=== PATIENT | male | born 1975 | race Caucasian/White ===

== ENCOUNTER → 2017-03-04 | Outpatient (CLI) | payer BC | END | disposition home or self-care (01) | LOC: LABWHC1 16:40 | PROVIDERS: ATTEND Internal Medicine Cardiovascular Disease | DX: I48.1 Persistent atrial fibrillation (principal) | CPT/HCPCS: 36415; 84443 ==

== ENCOUNTER → 2017-03-04 | Outpatient (CLI) | payer BC ==
--- NOTE | 2017-03-04 14:03 | PCN ---
DATE OF SERVICE: 03/04/2017 STRESS TEST ([facility]) INDICATION: Chest pain. BASELINE HEART RATE: 107 BASELINE BLOOD PRESSURE: 112/94 MAXIMUM HEART RATE: 179 MAXIMUM BLOOD PRESSURE: 194/82 85% MPHR: 152 100% MPHR: 179 METS: 3.0 MAXIMUM STAGE REACHED: 1 TOTAL EXERCISE TIME: 2:17 Baseline EKG shows atrial fibrillation with totally controlled ventricular rate and nonspecific ST-T wave changes. Patient exercised on [facility] protocol for a total of 2 minutes, achieving 3 METS, 100% of predicted maximum heart rate and complained of shortness of breath and had PVC's due to which the stress test was stopped. CONCLUSION: 1. Poor exercise tolerance. 2. Atrial fibrillation with poorly-controlled ventricular rate. MTDD
== END | disposition home or self-care (01) ==
LOC: RADNMMAIN 09:58
PROVIDERS: ATTEND Internal Medicine
DX: I48.91 Unspecified atrial fibrillation (principal)
CPT/HCPCS: 93017

== ENCOUNTER 2017-03-16 07:34 | Day surgery (SDC) | payer BC ==
[2017-03-12 11:45] VITALS: BMI 37.5
[~2017-03-16 07:34] MED LIST: ALPRAZolam 0.25 MG TAB PO PRN; ALPRAZolam 0.5 MG TAB PO PRN; ASPIRIN 325 MG TAB PO STA; ATORVASTATIN 80 MG TAB PO STA; NITROGLYCERIN SL TABS 0.4 MG TAB SUBLINGUAL PRN; SODIUM CHLORIDE 0.9% 1,000 ML in EMPTY BAG 1 BAG IV ONE
[2017-03-16 07:57] VITALS: RESP 20; TEMP 98.4
[2017-03-16] MEDS ORDERED: MIDAZOLAM 2 MG/2 ML VIAL ONE (08:34)
[2017-03-16] MEDS ORDERED: diphenhydrAMINE 50 MG/ML 1 ML VIAL ONE (08:34)
[2017-03-16] MEDS ORDERED: LIDOCAINE 2% INJ 20 MG/ML (20 ML MDV) ONE (08:34)
[2017-03-16 08:50] LABS: Anion Gap 12 mmol/L; Blood Urea Nitrogen 17 mg/dL (9-20); Calcium 9.2 mg/dL (8.4-10.2); Carbon Dioxide 22 mmol/L (22-30); Chloride 106 mmol/L (98-107); Glucose 90 mg/dL (74-99); Non-African American GFR(MDRD) >60 (>60 ml/min/1.73 sqM); Potassium 4.6 mmol/L (3.5-5.1); Sodium 140 mmol/L (137-145)
[2017-03-16] MEDS ORDERED: IV FLUID CONTINUATION 900 ML IV ONE (08:52)
[2017-03-16] MEDS ORDERED: MIDAZOLAM 2 MG/2 ML VIAL IVP ONE (08:52)
[2017-03-16] MEDS ORDERED: diphenhydrAMINE 50 MG/ML 1 ML VIAL IVP ONE (08:52)
[2017-03-16] MEDS ORDERED: LIDOCAINE 2% INJ 20 MG/ML SQ ONE (08:56)
[2017-03-16] MEDS ORDERED: fentaNYL (PF) 50 MCG/ML 2 ML AMP ONE (08:58)
[2017-03-16] MEDS ORDERED: fentaNYL (PF) 50 MCG/ML 2 ML AMP IV ONE (09:00)
[2017-03-16] MEDS ORDERED: IOHEXOL 350 MG/ML 125ML BOTTLE INJ ONE (09:11)
[2017-03-16] MEDS ORDERED: RX INFO: IV CONTRAST WAS GIVEN 1 EACH MISC MISCELLANE PRN (09:21)
[2017-03-16] MEDS ORDERED: SODIUM CHLORIDE 0.9% 1,000 ML IV SCH (09:30)
[2017-03-16] MEDS ORDERED: LISINOPRIL 2.5 MG TAB PO SCH (10:00)
--- NOTE | 2017-03-16 10:01 | PCN ---
CARDIAC CATHETERIZATION NOTE INDICATION: New onset dilated cardiomyopathy. PROCEDURE NOTE: After obtaining informed consent left heart catheterization, coronary angiogram and LV gram were performed via the right femoral artery using standard Dianne catheters. Patient tolerated the procedure well without any obvious immediate complications. FINDINGS: 1. Hemodynamics: Left ventricular end-diastolic pressure is 12 mm. There is no significant gradient across the aortic valve. 2. Left Ventriculogram: Left ventriculogram is performed in MELGAR position and shows enlarged left ventricle with moderate LV systolic dysfunction with ejection fraction of 35 to 40% with diffuse global hypokinesis. 3. Angiographic Data: Left main coronary artery: The left main coronary artery is normal in size and free of stenosis. It divides into left anterior descending coronary artery, ramus intermedius and circumflex coronary artery. LAD and its branches, circumflex coronary artery and ramus intermedius are free of significant stenosis. Right coronary artery is a large dominant vessel and is free of significant stenosis. CONCLUSIONS: 1. Normal coronary arteries. 2. Dilated cardiomyopathy with moderate left ventricular dysfunction with diffuse global hypokinesis. PLAN: The exact etiology of his cardiomyopathy in this young gentleman is unclear, but could be related to the atrial fibrillation with uncontrolled ventricular rate. The plan at this stage is to continue with the beta ferdinand Tenormin 25 mg daily and lisinopril 2.5 mg daily. Continue the Xarelto that he is currently on and start him on amiodarone 200 mg b.i.d. and attempt cardioversion on him three weeks from now. My hope is that his cardiomyopathy is related to the A. fib with RVR and once he is cardioverted the LV function will improve. We will reassess his LV function three months after the cardioversion. CHIVO
--- NOTE | 2017-03-16 10:08 | MISC ---
March 16, [address] Villa: I performed cardiac catheterization on Tung Montoya. This is a 41-year-old gentleman who I initially met during stress test at [facility] when he was found to be in atrial fibrillation with poorly controlled ventricular rate. I started him on anticoagulant and rate control measures. Both an echocardiogram and stress test confirmed LV systolic dysfunction. I performed cardiac catheterization on him to rule out ischemic heart disease and the cardiac catheterization did not reveal any obstructive CAD. The plan at this stage is to adequately anticoagulate him, start him on amiodarone and attempt cardioversion three weeks from now. I am hoping that his cardiomyopathy is related to atrial fibrillation with poorly controlled ventricular rate and once he is in sinus rhythm his LV function would improve. Thank you for giving me the privilege of participating in this pleasant gentleman. Sincerely, CHIVO
[2017-03-16 17:02] VITALS: BP 102/62; PULSE 100
[2017-03-16] MEDS ORDERED: AMIODARONE 200 MG TAB PO SCH (21:00)
--- NOTE | 2017-03-18 11:56 | CDI ---
Dr. Clark Per the anesthesia report/plan, local and IV sedation are check marked. Fentanyl and Versed are noted to be administered. Per new CMS ([employer] for Medicare and Medicaid Services) guidelines there is a change by which the work of moderate/conscious sedation will be reimbursed separately. Further clarification of the documentation of IV sedation is needed for proper reporting purposes. Please clarify the type of sedation this patient received during the cardiac catheterization. Moderate/conscious sedation MAC (unconscious sedation) General Anesthesia Other (please specify) PLEASE DOCUMENT YOUR FINDINGS IN AN ADDENDUM TO THE PROCEDURE NOTE. If you have any questions about this query, you may contact Network Operations Lead, Opal Mcneil at . Thank you for your time. HERMELINDO Tijerina
--- NOTE | 2017-03-31 07:57 | PN ---
This is a 41-year-old gentleman who underwent cardiac catheterization by me and the total sedation time was 15 minutes. CHIVO
== END 2017-03-16 14:40 | disposition home or self-care (01) ==
LOC: CATHCVL 07:34
PROVIDERS: ATTEND Internal Medicine Cardiovascular Disease
DX: I42.0 Dilated cardiomyopathy (principal); I48.1 Persistent atrial fibrillation; I10 Essential (primary) hypertension; Z79.82 Long term (current) use of aspirin; Z79.899 Other long term (current) drug therapy; Z79.01 Long term (current) use of anticoagulants
CPT/HCPCS: 93458; 80048; C1760; C1894; C1769; J2001; J2250; J1200; J3010; Q9967

== ENCOUNTER → 2018-05-18 | Outpatient (CLI) | payer BC ==
--- NOTE | 2018-05-18 10:37 | US ---
EXAMINATION TYPE: US thyroid st tissue head/neck DATE OF EXAM: 05/18/2018 COMPARISON: NONE CLINICAL HISTORY: R94.6 ABN THYROID LABS. GLAND SIZE: Right Lobe: 4.4 x 1.3 x 1.7 cm Overall Parenchyma: heterogenous Left Lobe: 4.3 x 1.7 x 1.2 cm Overall Parenchyma: heterogeneous Isthmus Thickness: 0.5 cm NODULES RIGHT: # of nodules measured on right: 0 LEFT: # of nodules measured on left: 0 ISTHMUS: # of nodules measured in the isthmus: 0 Bilateral neck scanned, no evidence of lymphadenopathy. IMPRESSION: Heterogeneous pattern to the thyroid tissue without discrete nodule correlate for thyroiditis.
== END | disposition home or self-care (01) ==
LOC: RADUSWWP 08:31
PROVIDERS: ATTEND Internal Medicine
DX: R93.8 Abnormal findings on diagnostic imaging of other specified body structures (principal)
CPT/HCPCS: 76536

== ENCOUNTER → 2019-05-31 | Outpatient (CLI) | payer BC ==
[2019-05-31 14:07] VITALS: BP 120/74; PULSE 75; TEMP 98.4; BMI 39.5
--- NOTE | 2019-05-31 17:26 | P.HPBAR ---
Bariatric H&P - History & Physicial H&P Date: 05/31/19 History & Physicial: Visit/CC: band adjustment Patient initial contact: Initial weight: 158.757 kg Initial weight in pounds: 350.00 Height: 6 ft 3 in Initial BMI: 43.7 Last weight: Current weight: 143.426 kg Current weight in pounds: 316.20 Current BMI: 39.5 Buckner body weight (based on NIH guidelines): 88.904 kg Excess body weight loss: 21.9% The patient is a 43 year-old M who presents for Bariatric Assessment. Patient known to the bariatric center. Under underwent previous lap band by Dr. Lopez. His heaviest weight was 355. His lowest weight he believes was 300. Currently sitting at 316. Patient was too tight in the past and said his band was emptied. Still however having episodes of regurgitation one time per week. Daily he has food getting caught requires the patient to stand up and walk around for the food passed. No recent workup. Denies heartburn. No night cough. He is not sure if he wants to keep the band or if he wants to move to a different bariatric procedure at this point. Review of Systems The patient denies any acute changes in vision or hearing, no dysphagia or odynophagia, no chest pain or shortness of breath, no dysuria or hematuria, no headache, no runny nose, no rectal bleeding or melena, no unexplained weight loss Past Medical History Past Medical History: Atrial Fibrillation, Hypertension Additional Past Medical History / Comment(s): A-FIb resolved with cardiac "start and stop" 2015 History of Any Multi-Drug Resistant Organisms: None Reported Past Surgical History: Tonsillectomy Additional Past Surgical History / Comment(s): Lap Band 2012, Cardiac "start and stop" to correct A-Fib (2015) Past Anesthesia/Blood Transfusion Reactions: No Reported Reaction Additional Past Anesthesia/Blood Transfusion Reaction / Comm: NO blood transfusion to date Smoking Status: Never smoker - Past Family History Mother Family Medical History: No Reported History Surgical - Exam Vital Signs Temp Pulse BP 98.4 F 75 120/74 05/31/19 13:57 05/31/19 13:57 05/31/19 13:57 Physical exam: General: Well-developed, well-nourished HEENT: Normocephalic, sclerae nonicteric Abdomen: Nontender, nondistended Extremities: No edema Neuro: Alert and oriented Bariatric Assessment & Plan (1) Morbid obesity Narrative/Plan: Options reviewed with the patient. At this time he and I decided to access the band and remove any additional fluid that is present. The band was accessed echo douglasely. 1 mL was removed. The band was now emptied. Will check esophagogram. Patient will consider what he likes to do with the band and with any other additional areas procedures in the future. Risks and benefits of both sleeve gastrectomy and bypass reviewed. Status: Acute Bariatric Checklist Checklist: Plan: Checklist: EGD: 1. Hiatal hernia: 2. H. Pylori: HgbA1c: Vitamin D: Smoking: Never smoker Primary care physician referral: Mihai Villa Psychiatry clearance: Cardiology clearance: Sleep study: Diet journal: VTE risk score: VTE risk level: Rehab needs at discharge:
== END | disposition home or self-care (01) ==
LOC: BARWHC3 13:12
PROVIDERS: ATTEND Surgery
DX: Z46.51 Encounter for fitting and adjustment of gastric lap band (principal); E66.01 Morbid (severe) obesity due to excess calories; Z68.39 Body mass index [BMI] 39.0-39.9, adult
CPT/HCPCS: 99202

== ENCOUNTER → 2019-08-19 | Outpatient (CLI) | payer BC ==
--- NOTE | 2019-08-19 12:06 | FL ---
EXAMINATION TYPE: FL barium swallow DATE OF EXAM: 08/19/2019 CLINICAL HISTORY: Dysphagia. Left and placed 11 years ago. TECHNIQUE: A single contrast esophagram is performed utilizing thin barium only. A total of 1 minut e and 32 seconds of fluoroscopic time was utilized during procedure. 37 fluoroscopic images were save d on the examination. COMPARISON: None FINDINGS: The esophagus shows normal motility and emptying into the stomach. Gastric lap band appears appropriately placed with good flow of contrast. No evidence of hiatal hernia or stricture noted. Mi ld degree gastroesophageal reflux was seen during real time performance of this study to the level of distal third of the esophagus in the supine position only without Valsalva. IMPRESSION: 1. There is appropriate flow through the lap band without significant delay or leak. The gastric lap band appears appropriately positioned without prolapse. 2. Mild degree gastroesophageal reflux in the supine position only.
== END | disposition home or self-care (01) ==
LOC: RADUSWWP 09:59
PROVIDERS: ATTEND Surgery
DX: K21.9 Gastro-esophageal reflux disease without esophagitis (principal); R13.0 Aphagia
CPT/HCPCS: 74220

== ENCOUNTER → 2020-02-10 | Outpatient (CLI) | payer BC ==
[2020-02-10 12:31] LABS: Basophils % (A) 0 %; Eosinophils # (A) 0.1 k/uL (0-0.7); Eosinophils % (A) 1 %; HCT 41.8 % (39.0-53.0); HGB 13.6 gm/dL (13.0-17.5); Lymphocytes # (A) 1.5 k/uL (1.0-4.8); Lymphocytes % (A) 27 %; MCH 30.8 pg (25.0-35.0); MCHC 32.6 g/dL (31.0-37.0); MCV 94.6 fL (80.0-100.0); Mean Platelet Volume 7.7; Monocytes # (A) 0.3 k/uL (0-1.0); Monocytes % (A) 6 %; Neutrophils # (A) 3.5 k/uL (1.3-7.7); Neutrophils % (A) 63 %; Platelet Count 266 k/uL (150-450); RBC 4.41 m/uL (4.30-5.90); RDW 12.6 % (11.5-15.5); WBC 5.5 k/uL (3.8-10.6)
[2020-02-10 12:43] LABS: ALT 23 U/L (4-49); AST 30 U/L (17-59); African American GFR (CKD) >90 (>60 ml/min/1.73 sqM); Albumin 4.5 g/dL (3.5-5.0); Alkaline Phosphatase 57 U/L (38-126); Anion Gap 8 mmol/L; Blood Urea Nitrogen 16 mg/dL (9-20); Calcium 9.4 mg/dL (8.4-10.2); Carbon Dioxide 25 mmol/L (22-30); Chloride 104 mmol/L (98-107); Glucose 91 mg/dL (74-99); Non-African American GFR(CKD) >90 (>60 ml/min/1.73 sqM); Potassium 4.5 mmol/L (3.5-5.1); Sodium 137 mmol/L (137-145); Total Bilirubin 0.5 mg/dL (0.2-1.3); Total Protein 7.3 g/dL (6.3-8.2)
== END | disposition home or self-care (01) ==
LOC: LABWHC1 10:45
PROVIDERS: ATTEND Surgery
DX: Z01.818 Encounter for other preprocedural examination (principal); Z11.59 Encounter for screening for other viral diseases
CPT/HCPCS: 80053; 85025; 93005; 36415; U0003

== ENCOUNTER 2020-02-13 12:59 | Day surgery (SDC) | payer BC ==
[2020-02-09 13:18] VITALS: BMI 37.8
[~2020-02-13 12:59] MED LIST changes: -ALPRAZolam 0.25 MG TAB PO PRN; -ALPRAZolam 0.5 MG TAB PO PRN; -ASPIRIN 325 MG TAB PO STA; -ATORVASTATIN 80 MG TAB PO STA; +DEXAMETHASONE SOD PHOSPHATE 10 MG/ML 1 ML VIAL IV ONE; +HYDROmorphone 0.5 MG/0.5 ML SYRINGE IVP PRN; +LACTATED RINGERS 1,000 ML IV SCH; +LIDOCAINE 1% (10MG/ML) FOR IV START INTRADERMA PRN; -NITROGLYCERIN SL TABS 0.4 MG TAB SUBLINGUAL PRN; +ONDANSETRON 4 MG/2 ML VIAL IVP ONE; +SCOPOLAMINE 1.5MG/72HR PATCH TRANSDERM ONE; -SODIUM CHLORIDE 0.9% 1,000 ML in EMPTY BAG 1 BAG IV ONE; +ceFAZolin 3 GM in SODIUM CHLORIDE 0.9% 100 ML IVPB ONE
--- NOTE | 2020-02-13 13:06 | P.GSHP ---
History of Present Illness H&P Date: 02/13/20 Chief Complaint: Dysphagia, vomiting 44-year-old male underwent previous lap band placement by Dr. Lopez. Was last seen prior to today in May of last year. Patient has had intermittent episodes of vomiting and regurgitation. States he daily has food getting caught at the band site. Upper GI showed no evidence of prolapse or erosion. When he was seen in May the patient had 1 mL of fluid removed from the band. Band was then emptied. Patient contacted us stating that his vomiting has persisted. Dysphagia continues. He would like his band removed. Here today for elective lap band removal. Only mild discomfort. Past Medical History Past Medical History: Atrial Fibrillation, Hypertension Additional Past Medical History / Comment(s): . History of Any Multi-Drug Resistant Organisms: None Reported Past Surgical History: Bariatric Surgery, Heart Catheterization, Tonsillectomy Additional Past Surgical History / Comment(s): Lap Band 2013, cardioversion Past Anesthesia/Blood Transfusion Reactions: No Reported Reaction Additional Past Anesthesia/Blood Transfusion Reaction / Comment(s): . Smoking Status: Light tobacco smoker - Past Family History Mother Family Medical History: Cancer Medications and Allergies Home Medications Medication Instructions Recorded Confirmed Type Carvedilol [Coreg] 6.25 mg PO BID 05/31/19 02/09/20 History Lisinopril [Zestril] 2.5 mg PO DAILY 05/31/19 02/09/20 History Multivitamins, Thera [Multivitamin 1 tab PO DAILY 02/09/20 02/09/20 History (formulary)] Allergies Allergy/AdvReac Type Severity Reaction Status Date / Time No Known Allergies Allergy Verified 02/09/20 13:10 Surgical - Exam Physical exam: General: Well-developed, well-nourished HEENT: Normocephalic, sclerae nonicteric Abdomen: Nontender, nondistended Extremities: No edema Neuro: Alert and oriented Assessment and Plan (1) Intractable vomiting Narrative/Plan: Will proceed with laparoscopic lap band removal, possible open. M The risks of bleeding, infection, stenosis, stricture, leak, abscess, fistula formation, peritonitis, reflux, vomiting, conversion to an open procedure, findings of gastric erosion, CA, PE, DVT, and were discussed. The patient understands and wishes to proceed. Current Visit: Yes Status: Acute Code(s): R11.10 - VOMITING, UNSPECIFIED SNOMED Code(s): 473866784
[2020-02-13] MEDS ORDERED: ceFAZolin 3 GM in SODIUM CHLORIDE 0.9% 100 ML IVPB ONE (14:24)
[2020-02-13] MEDS ORDERED: HEPARIN SODIUM,PORCINE 5,000 UNIT/ML 1 ML VIAL SQ STA (14:24)
[2020-02-13] MEDS ORDERED: fentaNYL (PF) 50 MCG/ML 2 ML AMP ONE (14:39)
[2020-02-13] MEDS ORDERED: SUCCINYLCHOLINE CHLORIDE 100 MG/5 ML SYR IV ONE (14:39)
[2020-02-13] MEDS ORDERED: MIDAZOLAM 2 MG/2 ML VIAL ONE (14:39)
[2020-02-13] MEDS ORDERED: PROPOFOL 10 MG/ML 20 ML VIAL IV ONE (14:39)
[2020-02-13] MEDS ORDERED: NEOSTIGMINE 1 MG/ML 10 ML VIAL ONE (14:39)
[2020-02-13] MEDS ORDERED: LIDOCAINE 1% INJ 10MG/ML (20 ML MDV) ONE (14:39)
[2020-02-13] MEDS ORDERED: KETOROLAC 30 MG/ML 1 ML VIAL ONE (14:39)
[2020-02-13] MEDS ORDERED: ROCURONIUM BROMIDE 10 MG/ML 5 ML VIAL IV ONE (14:39)
[2020-02-13] MEDS ORDERED: GLYCOPYRROLATE 0.2 MG/ML 2 ML VIAL ONE (14:39)
[2020-02-13] MEDS ORDERED: BUPIVACAIN-EPI 0.25%-1:200,000 30 ML VIAL SQ ONE ×2 (14:43→15:04)
[2020-02-13] MEDS ORDERED: NALOXONE 0.4 MG/ML 1 ML VIAL IV PRN (15:48)
[2020-02-13] MEDS ORDERED: HYDROcodone/APAP 5-325MG 1 EACH TAB PO PRN (15:48)
[2020-02-13 15:52] VITALS: TEMP 97.4
--- NOTE | 2020-02-13 15:52 | P.OP ---
Date of Procedure: 02/13/20 Procedure(s) Performed: PREOPERATIVE DIAGNOSIS: Band intolerance/intractable vomiting, dysphagia POSTOPERATIVE DIAGNOSIS: Same PROCEDURE: Laparoscopic lap band removal SURGEON: Cristino EBL: Minimal ANESTHESIA: General COMPLICATIONS: None OPERATIVE PROCEDURE: The patient was brought and placed on the operating room table in the supine position. The patient was placed under general anesthesia at that time. The patient was then placed in lithotomy. The abdomen was prepped and draped in the usual sterile fashion. The previous port incision was localized and then incised using a scalpel. The port was excised using electrocautery. Entrance into the peritoneal cavity occurred using a 5 mm optical trocar through the old trocar entrance site. Insufflation took place to 15 mmHg. A right subxiphoid 5 mm trocar was placed. This was then removed and the medium Teto hook was used to elevate the left lobe of the liver anteriorly. An additional 5 mm trocar was placed under direct visualization in the left lateral upper quadrant. The original 5 mm trocar was switched to a 15 mm trocar. A additional 5 mm trocar was placed in the right upper quadrant under direct dilatation. There were adhesions to the band in the buccal that were lysed using both the LigaSure and electrocautery. The band was then opened at the buccal. The band was then easily removed from the abdomen through the 15 mm trocar site. The stomach itself was inspected and revealed no evidence of erosion or prolapse. The trochars were removed. The fascia at the 15 mm site was closed using a Bonifacio-Shea [id number] 0 Vicryl stitch. The subcutaneous tissues at the port site was closed using a 3-0 Vicryl suture. The skin at all 4 incision sites were closed using 4-0 Monocryl sutures. Skin glue and sterile dressings were then applied. DISPOSITION: Stable to recovery room
[2020-02-13] MEDS ORDERED: LACTATED RINGERS 1,000 ML IV ONE (16:06)
[2020-02-13] MEDS ORDERED: HYDROcodone/APAP 5-325MG 1 EACH TAB PO ONE (17:05)
[2020-02-13 17:11] VITALS: RESP 18
[2020-02-13 17:13] VITALS: BP 110/76; PULSE 65
== END 2020-02-13 17:43 | disposition home or self-care (01) ==
LOC: OR 12:59
PROVIDERS: ATTEND Surgery
DX: K95.09 Other complications of gastric band procedure (principal); R11.10 Vomiting, unspecified; R13.10 Dysphagia, unspecified; K66.0 Peritoneal adhesions (postprocedural) (postinfection); E66.01 Morbid (severe) obesity due to excess calories; I48.91 Unspecified atrial fibrillation; I10 Essential (primary) hypertension; F17.200 Nicotine dependence, unspecified, uncomplicated; Z68.39 Body mass index [BMI] 39.0-39.9, adult; Z98.890 Other specified postprocedural states; Z90.89 Acquired absence of other organs; Z79.899 Other long term (current) drug therapy; Z80.9 Family history of malignant neoplasm, unspecified
CPT/HCPCS: 43774; J2250; J1644; J1100; J2710; J0690; J2405; J2001; J3010; J1885; J0330; J2704